=== PATIENT | female | born 1975 | race Caucasian/White ===

== ENCOUNTER 2016-11-20 15:02 | Emergency (ER) | payer BC ==
--- NOTE | ~2016-11-20 | OP ---
Record Of Operation [facility] [address] [place]. [address] NAME: WILMAN DAVENPORT : 71 STATUS : CECILIA CORMIER PAT#: [id number] AGE: 41 ADM/REG DATE : 11/20/16 MR#: [id number] REPORT SERV DATE: 11/21/16 DICTATED BY: AGUSTIN CASTANEDA DATE: 11/20/16 REPORT STATUS : Draft TRANSCRIBED BY: MODL DATE: 11/20/16 DATE OF PROCEDURE: 11/20/2016 PREOPERATIVE DIAGNOSIS: Right ectopic , possibly ruptured. POSTOPERATIVE DIAGNOSIS: Right ruptured ectopic . OPERATION: Laparoscopy, right salpingectomy, and removal of right ectopic . FUEL DOCK ATTENDANT: Zina. ANESTHESIA: General endotracheal. ESTIMATED BLOOD LOSS: 5 to 10 mL. HEMOPERITONEUM: Approximately 200 mL. PREOPERATIVE ANTIBIOTICS: None. INTRAOPERATIVE COMPLICATIONS: None. INTRAOPERATIVE SPECIMENS: Right fallopian tube with ampullary ectopic . PROCEDURE IN DETAIL: The patient was taken to the operating room following discussion of procedure and probable need to remove fallopian tube if is ampullary portion. The patient was placed on the table in dorsal lithotomy position. Prepped and draped in usual fashion. A 7 cm ClearView manipulator was placed, good uterine dehiscence. Abdominal cavity was entered with Optiview trocar under direct visualization. Suprapubic and right 5 mm trocars inserted under direct visualization. Uterus was irregularly shaped with extensive gelatinous fibrovascular adhesions. Fallopian tube was enlarged consistent with 7 to 8-week ampullary ectopic . Adhesions were attaching fallopian to the lower ovarian fossa. Using LigaSure bipolar cautery, the fallopian tube was transected along with the mesosalpinx. Fallopian tube was then removed through a 10/12 trocar that was placed in the suprapubic site. Specimen sent to pathology. Thorough irrigation and suction performed, CO2 evacuated. Incision sites closed with 3-0 Vicryl at the fascia and the suprapubic site, and otherwise, the skin was closed with Dermabond. Sponge, blade, needle count correct x3. RENATA/NATHAN Agustin Castaneda M.D. / [id number] Record Of Operation [place] [address] [address] [place]. [id number] NAME: WILMAN DAVENPORT : 71 STATUS : [facility] PAT#: [id number] AGE: 41 ADM/REG DATE : 11/20/16 MR#: [id number] REPORT SERV DATE: 11/21/16 DICTATED BY: AGUSTIN CASTANEDA DATE: 11/20/16 REPORT STATUS : Draft TRANSCRIBED BY: NATHAN DATE: 11/20/16 CC: Mago Schuster M.D.
[2016-11-20 15:47] LABS: BASOPHILS 0.3 %; BASOPHILS ABSOLUTE 0.02 10/3/uL (0.0-0.16); EOSINOPHILS 0.4 %; EOSINOPHILS ABSOLUTE 0.03 10/3/uL (0.0-0.53); HEMATOCRIT 35.8 % (36.0-48.0); HEMOGLOBIN 11.7 g/dL (12.0-16.0); IMMATURE GRANULOCYTES 0.3 %; IMMATURE GRANULOCYTES ABSOLUTE 0.02 10/3/uL (0.0-0.11); LYMPHOCYTES ABSOLUTE 1.65 10/3/uL (0.67-4.30); MEAN CORPUS HGB CONC 32.7 g/dL (32.0-36.0); MEAN CORPUSCULAR HEMOGLOB 31.1 pg (26.0-34.0); MEAN CORPUSCULAR VOLUME 95.2 fL (80-100); MONOCYTES 6.3 %; MONOCYTES ABSOLUTE 0.47 10/3/uL (0.21-1.20); NEUTROPHILS 70.7 %; PLATELET COUNT 161 10/3/uL (150-400); RBC DISTRIBUTION WIDTH 12.7 % (12.0-16.0); RED CELL COUNT 3.76 10/6/uL (4.0-5.6); WHITE BLOOD CELLS 7.5 10/3/uL (4.5-10.5)
[2016-11-20 15:49] LABS: MANUAL DIFF NO %
[2016-11-20 15:56] LABS: INTERNATIONAL NORMAL RATI 1.2 UNITS (-); PROTIME (NOT ORD) 15.2 SEC (12.0-14.5)
[2016-11-20 16:17] LABS: A/G RATIO 1.3 (0.7-1.9); ALBUMIN 3.7 G/DL (3.5-5.0); ALKALINE PHOSPHATASE 60 U/L (45-117); BUN (BLOOD UREA NITROGEN) 18 MG/DL (6-23); CALCIUM, SERUM 8.7 MG/DL (8.5-10.4); CHLORIDE, SERUM 106 MMOL/L (96-112); CO2 (CARBON DIOXIDE) 26 MMOL/L (24-34); CREATININE 0.77 MG/DL (0.55-1.02); GFR AFRICAN AMERICAN 110 ML/MIN (>=60); GFR NON AFRICAN AMERICAN 95 ML/MIN (>=60); GLOBULIN 2.9 G/DL (2.5-4.1); GLUCOSE, SERUM 89 MG/DL (60-99); SGOT(AST) 19 U/L (5-40); SGPT(ALT) 40 U/L (5-65); SODIUM, SERUM 139 MMOL/L (135-148); TOTAL BILIRUBIN 0.3 MG/DL (0-1.2); TOTAL PROTEIN 6.6 G/DL (6.0-8.5)
[2016-11-20 19:13] LABS: BASOPHILS 0.3 %; BASOPHILS ABSOLUTE 0.02 10/3/uL (0.0-0.16); EOSINOPHILS 0.6 %; EOSINOPHILS ABSOLUTE 0.04 10/3/uL (0.0-0.53); ER CBC TAT 0 Hrs 03 Mins; HEMOGLOBIN 11.3 g/dL (12.0-16.0); IMMATURE GRANULOCYTES 0.2 %; IMMATURE GRANULOCYTES ABSOLUTE 0.01 10/3/uL (0.0-0.11); LYMPHOCYTES 28.7 %; LYMPHOCYTES ABSOLUTE 1.81 10/3/uL (0.67-4.30); MEAN CORPUS HGB CONC 33.2 g/dL (32.0-36.0); MEAN CORPUSCULAR HEMOGLOB 31.6 pg (26.0-34.0); MEAN PLATELET VOLUME 11.1 fL (9.2-13.0); MONOCYTES 5.2 %; MONOCYTES ABSOLUTE 0.33 10/3/uL (0.21-1.20); PLATELET COUNT 155 10/3/uL (150-400); RBC DISTRIBUTION WIDTH 12.7 % (12.0-16.0); RED CELL COUNT 3.58 10/6/uL (4.0-5.6); WHITE BLOOD CELLS 6.3 10/3/uL (4.5-10.5)
[2016-11-20 19:18] LABS: MANUAL DIFF NO %
[2016-11-20] MEDS ORDERED: BETA ALANINE PO (19:24)
[2016-11-20] MEDS ORDERED: BEET PO (19:24)
[2016-11-20] MEDS ORDERED: OTC IRON PO (19:25)
[2016-11-20] MEDS ORDERED: VITC500 PO (19:25)
== END 2016-11-20 19:40 | disposition still patient (30) ==
LOC: ER 15:02
PROVIDERS: Emergency Medicine; Obstetrics & Gynecology
PROC: 0UB04ZZ Excision of Right Ovary, Percutaneous Endoscopic Approach (ICD-10-PCS; 2016-11-20)
PROC: 0UB54ZZ Excision of Right Fallopian Tube, Percutaneous Endoscopic Approach (ICD-10-PCS; 2016-11-20)
PROC: 10T24ZZ Resection of Products of Conception, Ectopic, Percutaneous Endoscopic Approach (ICD-10-PCS; principal; 2016-11-20 20:00)
DX: O00.90 Unspecified ectopic pregnancy without intrauterine pregnancy (principal); Z79.899 Other long term (current) drug therapy
CPT/HCPCS: 36415; 76830; 80053; 84702; 85025; 85610; 86850; 86900; 86901; 88305; 93005; 99285; J0330; J1885; J2175; J2710; J3010